=== PATIENT | male | born 1985 | race Caucasian/White ===

== ENCOUNTER 2019-03-24 01:13 | Emergency (ER) | payer OTHER ==
--- NOTE | 2019-03-24 02:42 | ED ---
Lower Extremity - HPI Summary HPI Summary: A 34 y/o M presents to ED c/o R foot pain onset yesterday and worsening. Patient was playing soccer last night and another player kicked the top of his R foot. The pain radiates to the inner arch of his foot. He is able to ambulate on his R foot but with pain. Denies n/v, pain elsewhere, no head trauma. - History of Current Complaint Chief Complaint: EDExtremityLower Stated Complaint: FOOT INJURY PER PT Time Seen by Provider: 03/24/19 02:37 Hx Obtained From: Patient Mechanism Of Injury: Direct Blow Onset of Pain: Prior to Arrival Onset/Duration: Days - yesterday Severity Initially: Moderate Severity Currently: Moderate Pain Intensity: 7 Pain Scale Used: 0-10 Numeric Timing: Constant Location: Is Discrete @ - R foot Associated Signs And Symptoms: Positive: Other - neg: n/v, head trauma, pain elsewhere Aggravating Factor(s): Ambulation, Movement, Weight Bearing Alleviating Factor(s): Ice - mildly Able to Bear Weight: Yes - with pain - Allergies/Home Medications Allergies/Adverse Reactions: Allergies Allergy/AdvReac Type Severity Reaction Status Date / Time No Known Allergies Allergy Verified 03/24/19 01:15 Home Medications: Home Medications NK [No Home Medications Reported] 03/24/19 [History Confirmed 03/24/19] PMH/Surg Hx/FS Hx/Imm Hx Previously Healthy: Yes Cardiovascular History: Denies: Hx Congestive Heart Failure Sensory History: Denies: Hx Legally Blind, Hx Deafness Opthamlomology History: Denies: Hx Legally Blind EENT History: Denies: Hx Deafness Neurological History: Denies: Hx Dementia Infectious Disease History: No Infectious Disease History: Denies: Traveled Outside the [place] in Last 30 Days - Social History Occupation: Student Lives: Alone Alcohol Use: Rare Hx Substance Use: No Hx Tobacco Use: No Smoking Status (MU): Never Smoked Tobacco Review of Systems Negative: Vomiting, Nausea Musculoskeletal: Other - pos: R foot pain, otherwise denies pain elsewhere, no head trauma All Other Systems Reviewed And Are Negative: Yes Physical Exam - Summary Physical Exam Summary: Constitutional: Well-developed, Well-nourished, Alert. (-) Distressed Skin: Warm, Dry HENT: Normocephalic; Atraumatic Eyes: Conjunctiva normal Neck: Musculoskeletal ROM normal neck. (-) JVD, (-) Stridor, (-) Tracheal deviation Cardio: Rhythm regular, rate normal, Heart sounds normal; Intact distal pulses; The pedal pulses are 2+ and symmetric. Radial pulses are 2+ and symmetric. (-) Murmur Pulmonary/Chest wall: Effort normal. (-) Respiratory distress, (-) Wheezes, (-) Rales Abd: Soft, (-) tenderness, (-) Distension, (-) Guarding, (-) Rebound Musculoskeletal: Tenderness to palpation of the proximal dorsal surface of foot ; good range of motion; good capillary refill; posterior tibial and dorsal pedis pulses are good. Lymph: (-) Cervical adenopathy Neuro: Alert, Oriented x3 Psych: Mood and affect Normal Triage Information Reviewed: Yes Vital Signs On Initial Exam: Initial Vitals Temp Pulse Resp BP Pulse Ox 98.1 F 88 18 120/73 95 03/24/19 01:13 03/24/19 01:13 03/24/19 01:13 03/24/19 01:13 03/24/19 01:13 Vital Signs Reviewed: Yes Diagnostics - Vital Signs Vital Signs Temp Pulse Resp BP Pulse Ox 03/24/19 01:13 98.1 F 88 18 120/73 95 - Laboratory Lab Statement: Any lab studies that have been ordered have been reviewed, and results considered in the medical decision making process. - Radiology R Foot XR Radiology Interpretation Completed By: ED Physician Summary of Radiographic Findings: Small avulsion fracture in the navicular bone Re-Evaluation - Re-Evaluation 1 Re-Evaluation Time: 04:20 Change: Unchanged Comment: Discussing results with patient, placing boot, giving him crutches. Will discharge home. Lower Extremity Course/Dx - Course Course Of Treatment: Patient is a 34 y/o M presenting with R foot pain onset yesterday. Patient was playing soccer last night and another player kicked the top of his R foot. He is able to ambulate on his R foot but with pain. PE finds tenderness to palpation of the proximal dorsal surface of foot; good range of motion; good capillary refill; posterior tibial and dorsal pedis pulses are good. R Foot XR as read by ED provider shows a small avulsion fracture in the navicular bone. R foot placed in boot and given crutches. Will discharge home to f/u with ortho. - Diagnoses Provider Diagnoses: Avulsion fracture of navicular bone of right foot Discharge - Sign-Out/Discharge Documenting (check all that apply): Patient Departure - D/C Patient Received Moderate/Deep Sedation with Procedure: No - Discharge Plan Condition: Stable Disposition: HOME Patient Education Materials: Foot Fracture in Adults (ED) Print Language: QATARI Referrals: [facility] [Outside] Fernando Hurtado MD [Medical Doctor] - Additional Instructions: No soccer until re-evaluation by orthopedics. - Attestation Statements Document Initiated by Scribe: Yes Documenting Scribe: Catie Perkins Provider For Whom Scribe is Documenting (Include Credential): Dr. Ann Rincon MD Scribe Attestation: I, Catie Perkins, scribed for Dr. Ann Rincon MD on at [id number].
[2019-03-24 04:43] VITALS: BP 123/69
== END 2019-03-24 04:43 | disposition home or self-care (01) ==
LOC: ED 01:13
DX: S92.251A Displaced fracture of navicular [scaphoid] of right foot, initial encounter for closed fracture (principal); M79.671 Pain in right foot; W50.0XXA Accidental hit or strike by another person, initial encounter; Y93.66 Activity, soccer; Y99.9 Unspecified external cause status
CPT/HCPCS: 99282